=== PATIENT | male | born 1985 | race Hispanic/Latino ===

== ENCOUNTER 2021-12-14 21:09 | Emergency (ER) | payer SELFPAY ==
--- NOTE | 2021-12-14 23:12 | EDPHYS ---
Physician Documentation [facility] Name: Bassam Barry Age: 36 yrs Sex: Male : 1985 Arrival Date: 12/14/2021 Time: 21:11 Bed 27 Private MD: ED Physician Mir Pascal HPI: 12/14 23:06 This 36 yrs old Male presents to ER via Ambulatory with complaints of Head cp Injury-Adult. 23:06 The patient or guardian reports swelling, tenderness. The complaints affect the right cp side of the back of head. Context of injury: resulted from a direct blow, metal bar. Onset: The symptoms/episode began/occurred today, about 1800. Associated signs and symptoms: The patient has no apparent associated signs or symptoms. Historical: - Allergies: 21:18 No Known Allergies; eh3 - Home Meds: 21:18 None [Active]; eh3 - PMHx: 21:18 None; eh3 - PSHx: 21:18 None; eh3 - Immunization history:: Adult Immunizations up to date. - Social history:: Smoking status: Patient denies any tobacco usage or history of. Patient uses alcohol, occasionally. Patient/guardian denies using street drugs, tobacco products. ROS: 23:07 Eyes: Negative for injury, pain, redness, and discharge. cp 23:07 Constitutional: Negative for body aches, chills, fever, poor PO intake. 23:07 Neck: Negative for pain with movement, pain at rest, stiffness. 23:07 Cardiovascular: Negative for chest pain, palpitations. 23:07 Abdomen/GI: Negative for abdominal pain, nausea, vomiting. 23:07 Back: Negative for pain at rest, pain with movement. 23:07 Neuro: Negative for altered mental status, dizziness, headache, loss of consciousness, numbness, weakness. 23:07 All other systems are negative. cp Exam: 23:08 Constitutional: The patient appears in no acute distress, alert, awake, non-toxic, well cp developed, well nourished. 23:08 Head/face: Noted is contusion, that is superficial, of the right side of the back of head, swelling, that is mild, of the right side of the back of head, tenderness, that is mild, of the right side of the back of head. 23:08 Eyes: Periorbital structures: appear normal, Pupils: equal, round, and reactive to light and accomodation, Extraocular movements: intact throughout, Conjunctiva: normal, no exudate, no injection, Sclera: no appreciated abnormality, Lids and lashes: appear normal, bilaterally. 23:08 ENT: External ear(s): are unremarkable, Nose: is normal, Mouth: Lips: moist, Oral mucosa: moist, Posterior pharynx: Airway: no evidence of obstruction, patent. 23:08 Neck: C-spine: vertebral tenderness, is not appreciated, crepitus, is not appreciated, ROM/movement: is normal, is supple, without pain, no range of motions limitations, no nuchal rigidity. 23:08 Chest/axilla: Inspection: normal. 23:08 Cardiovascular: Rate: normal, Rhythm: regular. 23:08 Respiratory: the patient does not display signs of respiratory distress, Respirations: normal. 23:08 Neuro: Orientation: to person, place \T\ time. Mentation: is normal, Cerebellar function: is grossly normal, Motor: moves all fours, strength is normal, Sensation: is normal, Gait: is steady, at a normal pace, without difficulty. Vital Signs: 21:15 BP 133 / 84 RA (auto/lg); Pulse 64; Resp 18; Temp 98.3(T); Pulse Ox 98% on R/A; Weight eh3 99.79 kg; Height 5 ft. 5 in. (165.10 cm); Pain 0/10; 22:00 BP 127 / 70; Pulse 57; Resp 16; Temp 98.3(TE); Pulse Ox 97% on R/A; eh3 23:27 BP 116 / 78; Pulse 54; Resp 19; Pulse Ox 97% on R/A; sm5 21:15 Body Mass Index 36.61 (99.79 kg, 165.10 cm) eh3 [place] Coma Score: 21:15 Eye Response: spontaneous(4). Verbal Response: oriented(5). Motor Response: obeys [facility] commands(6). Total: 15. 23:06 Eye Response: spontaneous(4). Verbal Response: oriented(5). Motor Response: obeys cp commands(6). Total: 15. MDM: 22:43 Patient medically screened. cp 23:11 Data reviewed: vital signs, nurses notes. cp 23:11 Differential diagnosis: Contusion of head, Hematoma on head, Intracranial bleed- cp subdural, intracerebral, Concussion without LOC. cerebral contusion. Counseling: I had a detailed discussion with the patient and/or guardian regarding: the historical points, exam findings, and any diagnostic results supporting the discharge/admit diagnosis, to return to the emergency department if symptoms worsen or persist or if there are any questions or concerns that arise at home. Special discussion: Based on the patient's history, exam and DX evaluation, there is no indication for emergent intervention or inpatient TX. It is understood by the patient/guardian that if the SXs persist or worsen they need to return immediately for re-evaluation. Administered Medications: No medications were administered Disposition: 12/15 06:02 Co-signature as Attending Physician, Mir Pascal MD. [email or web address] Disposition Summary: 12/14/21 23:11 Discharge Ordered Location: Home cp Problem: new cp Symptoms: have improved cp Condition: Stable cp Diagnosis - Contusion of unspecified part of head, initial encounter cp Followup: cp - With: Emergency Department - When: As needed - Reason: Worsening of condition Discharge Instructions: - Discharge Summary Sheet cp - Facial or Scalp Contusion cp - Head Injury, Adult cp Forms: - Medication Reconciliation Form cp - Thank You Letter cp - Antibiotic Education cp - Prescription Opioid Use cp Signatures: Yvan Velazquez PA PA cp Mir Pascal MD MD [email or web address] [place]
--- NOTE | 2021-12-14 23:12 | ER ---
Nurse's Notes [facility] Name: Bassam Barry Age: 36 yrs Sex: Male : 1985 Arrival Date: 12/14/2021 Time: 21:11 Bed 27 Private MD: Diagnosis: Contusion of unspecified part of head, initial encounter Presentation: 12/14 21:15 Chief complaint: Patient states: hit head with tire iron while changing a tire at work. eh3 Coronavirus screen: Vaccine status: Patient reports being unvaccinated. At this time, the client does not indicate any symptoms associated with coronavirus-19. Ebola Screen: No symptoms or risks identified at this time. Mechanism of Injury: resulted from a direct blow, a solid object. Initial Sepsis Screen: Does the patient meet any 2 criteria? No. Patient's initial sepsis screen is negative. Does the patient have a suspected source of infection? No. Patient's initial sepsis screen is negative. Risk Assessment: Do you want to hurt yourself or someone else? Patient reports no desire to harm self or others. 21:15 Method Of Arrival: Ambulatory 3 21:15 Acuity: VELMA 3 eh3 Triage Assessment: 21:18 General: Appears in no apparent distress. comfortable, Behavior is calm, cooperative, eh3 appropriate for age. Pain: Denies pain. Neuro: Level of Consciousness is awake, alert, obeys commands, Reports headache parietal area. 21:18 EENT: No signs and/or symptoms were reported regarding the EENT system. Cardiovascular: eh3 Capillary refill < 3 seconds Patient's skin is warm and dry. Respiratory: Airway is patent Respiratory effort is even, unlabored. GI: No signs and/or symptoms were reported involving the gastrointestinal system. : No signs and/or symptoms were reported regarding the genitourinary system. Derm: No signs and/or symptoms reported regarding the dermatologic system. Musculoskeletal: No signs and/or symptoms reported regarding the musculoskeletal system. Injury Description: Head injury sustained to face was sustained 2-4 hours ago. Historical: - Allergies: 21:18 No Known Allergies; eh3 - Home Meds: 21:18 None [Active]; eh3 - PMHx: 21:18 None; eh3 - PSHx: 21:18 None; eh3 - Immunization history:: Adult Immunizations up to date. - Social history:: Smoking status: Patient denies any tobacco usage or history of. Patient uses alcohol, occasionally. Patient/guardian denies using street drugs, tobacco products. Screenin:08 Abuse screen: Denies threats or abuse. Nutritional screening: No deficits noted. bb Tuberculosis screening: No symptoms or risk factors identified. Fall Risk None identified. Assessment: 22:08 Reassessment: No changes from previously documented assessment. Patient is alert, bb oriented x 3, equal unlabored respirations, skin warm/dry/pink. 23:27 Reassessment: No changes from previously documented assessment. Patient and/or family 5 updated on plan of care and expected duration. Pain level reassessed. Patient is alert, oriented x 3, equal unlabored respirations, skin warm/dry/pink. Vital Signs: 21:15 BP 133 / 84 RA (auto/lg); Pulse 64; Resp 18; Temp 98.3(T); Pulse Ox 98% on R/A; Weight 3 99.79 kg; Height 5 ft. 5 in. (165.10 cm); Pain 0/10; 22:00 BP 127 / 70; Pulse 57; Resp 16; Temp 98.3(TE); Pulse Ox 97% on R/A; eh3 23:27 BP 116 / 78; Pulse 54; Resp 19; Pulse Ox 97% on R/A; sm5 21:15 Body Mass Index 36.61 (99.79 kg, 165.10 cm) eh3 [place] Coma Score: 21:15 Eye Response: spontaneous(4). Verbal Response: oriented(5). Motor Response: obeys [facility] commands(6). Total: 15. 23:06 Eye Response: spontaneous(4). Verbal Response: oriented(5). Motor Response: obeys commands(6). Total: 15. ED Course: 21:11 Patient arrived in ED. ja2 21:18 Triage completed. eh3 21:21 Arm band placed on left wrist. eh3 22:08 Yvan Velazquez PA is PHCP. cp 22:08 Mir Pascal MD is Attending Physician. cp 22:08 Patient has correct armband on for positive identification. Bed in low position. Call bb light in reach. 22:09 Valderrama, Randa, RN is Primary Nurse. bb 23:28 No provider procedures requiring assistance completed. Patient did not have IV access sm5 during this emergency room visit. Administered Medications: No medications were administered Medication: 23:28 VIS not applicable for this client. 5 Outcome: 23:11 Discharge ordered by . neha 23:28 Discharged to home ambulatory, with significant other. 5 23:28 Condition: stable 23:28 Discharge instructions given to patient, significant other, Instructed on discharge instructions, follow up and referral plans. Demonstrated understanding of instructions, follow-up care. 23:28 Patient left the ED. 5 Signatures: Randa Valderrama, RN RN bb Yvan Velazquez, Kimberley Longoria cp, Sarah RN RN sm5 [place] 3
[2021-12-14 23:42] VITALS: TEMP 98.3
[2021-12-14 23:44] VITALS: O2SAT 97
[2021-12-14 23:49] VITALS: BP 116/78
[2021-12-15] MEDS ORDERED: VANCOMYCIN 500 MG/VIAL ONE (01:16)
[2021-12-15] MEDS ORDERED: NA CHLORIDE 0.9% 100 ML ONE (01:16)
== END 2021-12-14 23:28 | disposition home or self-care (01) ==
LOC: ER 21:09
DX: S00.83XA Contusion of other part of head, initial encounter (principal)
CPT/HCPCS: 99281